=== PATIENT | male | born 2000 | race Hispanic/Latino ===

== ENCOUNTER → 2020-04-02 | Outpatient (CLI) | payer MEDICAID ==
[~2020-04-02] MED LIST: HONEY 1 APPL/ML TUBE TP ONE; LIDOCAINE HCL 2% JELLY 5 ML ONE
== END | disposition home or self-care (01) ==
LOC: WHH 13:03
PROVIDERS: ATTEND Family Medicine
DX: L89.313 Pressure ulcer of right buttock, stage 3 (principal); Q05.9 Spina bifida, unspecified; G82.20 Paraplegia, unspecified
CPT/HCPCS: 11042; 11045; 36415; 84134; 85651; 86140; 87076; 87077 ×3; 87186 ×3; 99215; A6197

== ENCOUNTER → 2020-04-09 | Outpatient (CLI) | payer MEDICAID ==
[~2020-04-09] MED LIST changes: +CHOL400T14 PO; +COLL30OI TP; +DOCU100C33 PO; +FERR325T22 PO; -HONEY 1 APPL/ML TUBE TP ONE; -LIDOCAINE HCL 2% JELLY 5 ML ONE; +OXCA300T46 PO; +OXYB15TA19 PO; +POLY17PO4 PO
== END | disposition home or self-care (01) ==
LOC: WHH 13:30
PROVIDERS: ATTEND Family Medicine
DX: L89.314 Pressure ulcer of right buttock, stage 4 (principal); G82.20 Paraplegia, unspecified; Q05.9 Spina bifida, unspecified
CPT/HCPCS: 11042; 11045; A6197

== ENCOUNTER → 2020-04-16 | Outpatient (CLI) | payer MEDICAID ==
[~2020-04-16] MED LIST changes: -CHOL400T14 PO; -COLL30OI TP; -DOCU100C33 PO; -FERR325T22 PO; +HONEY 1 APPL/ML TUBE TP ONE; +LIDOCAINE HCL 4% LTA SOL 4 ML VIAL ONE; -OXCA300T46 PO; -OXYB15TA19 PO; -POLY17PO4 PO
== END | disposition home or self-care (01) ==
LOC: WHH 13:00
PROVIDERS: ATTEND Family Medicine
DX: L89.314 Pressure ulcer of right buttock, stage 4 (principal); G82.20 Paraplegia, unspecified; Q05.9 Spina bifida, unspecified
CPT/HCPCS: 11042; 11045

== ENCOUNTER → 2020-04-23 | Outpatient (CLI) | payer MEDICAID ==
[~2020-04-23] MED LIST changes: -HONEY 1 APPL/ML TUBE TP ONE
== END | disposition home or self-care (01) ==
LOC: WHH 13:00
PROVIDERS: ATTEND Family Medicine
DX: L89.314 Pressure ulcer of right buttock, stage 4 (principal); G82.20 Paraplegia, unspecified; Q05.9 Spina bifida, unspecified
CPT/HCPCS: 11042; 11045; A6260

== ENCOUNTER → 2020-04-30 | Outpatient (CLI) | payer MEDICAID ==
[~2020-04-30] MED LIST changes: +CHOL400T14 PO; +COLL30OI TP; +DOCU100C33 PO; +FERR325T22 PO; -LIDOCAINE HCL 4% LTA SOL 4 ML VIAL ONE; +OXCA300T46 PO; +OXYB15TA19 PO; +POLY17PO4 PO
== END | disposition home or self-care (01) ==
LOC: WHH 13:00
PROVIDERS: ATTEND Family Medicine
DX: L89.314 Pressure ulcer of right buttock, stage 4 (principal); G82.20 Paraplegia, unspecified; Q05.9 Spina bifida, unspecified
CPT/HCPCS: 11042; 11045; A6260

== ENCOUNTER 2020-05-06 07:42 | Day surgery (SDC) | payer MEDICAID ==
[2020-05-02 10:27] LABS: BASOPHILS % (AUTO) 0.2 % (0.0-5.0); EOSINOPHILS % (AUTO) 0.4 % (0.0-8.0); HEMATOCRIT 34.7 % (42-54); MEAN CORPUSCULAR HGB CONC 30.8 g/dL (32.0-36.0); MEAN CORPUSCULAR VOLUME 87.6 fL (80-100); MONOCYTES % (AUTO) 7.9 % (3.0-13.0); NEUTROPHILS % (AUTO) 78.9 % (40.0-77.0); PLATELET COUNT (AUTO) 544 K/uL (130-400); RED BLOOD CELL COUNT(AUTO) 3.96 MIL/uL (4.50-6.20); RED CELL DISTRIBUTION WIDTH 13.7 % (11.0-15.5)
[2020-05-02 10:47] LABS: ALBUMIN 2.7 g/dL (3.5-5.0); BILIRUBIN,TOTAL 0.1 mg/dL (0.2-1.0); CREATININE 0.6 mg/dL (0.5-1.5); POTASSIUM 4.3 mmol/L (3.5-5.1); TOTAL PROTEIN, SERUM 8.5 g/dL (6.0-8.3)
[2020-05-02 14:36] VITALS: BP 131/79
[~2020-05-06] VITALS: Ht 162.6 cm; Wt 56.7 kg
[2020-05-06] VITALS (23 sets, daily range): BP systolic 109–149; BP diastolic 63–97
[2020-05-06] MEDS ORDERED: CEFAZOLIN SODIUM 1 GM VIAL ONE (08:42)
[2020-05-06] MEDS ORDERED: SODIUM CHLORIDE 0.9% 1000ML 1,000 ML IV ONE (08:42)
[2020-05-06] MEDS ORDERED: ONDANSETRON HCL 4 MG/2 ML VIAL ONE (09:23)
[2020-05-06] MEDS ORDERED: FENTANYL CITRATE PF 50 MCG/1 ML 2ML VIAL ONE (09:23)
[2020-05-06] MEDS ORDERED: DEXAMETHASONE SOD PHOSPHATE 10MG/ML 1ML VIAL ONE (09:23)
[2020-05-06] MEDS ORDERED: LIDOCAINE PF 2% 5ML ABBOJECT ONE (09:23)
[2020-05-06] MEDS ORDERED: MIDAZOLAM HCL 1 MG/ML 2ML VIAL ONE (09:24)
[2020-05-06] MEDS ORDERED: ROCURONIUM 10MG/1ML SYR 10 MG/ML ML ONE (09:24)
[2020-05-06] MEDS ORDERED: PROPOFOL 10 MG/ML 20ML VIAL IV ONE (09:24)
[2020-05-06] MEDS ORDERED: NEOSTIGMINE 5MG/5ML SYR IV ONE (10:26)
[2020-05-06] MEDS ORDERED: GLYCOPYRROLATE 1 MG/5 ML SYRINGE ONE (10:26)
[2020-05-06] MEDS ORDERED: DOCUSATE SODIUM 100 MG CAP PO PRN (13:45)
--- NOTE | 2020-05-06 15:00 | NUR ---
post received pt from [facility]. s/p right buttock/sacral area debridment and placement of wound vac continuous 125, wound vac sealed dry and intact. home wound vac in place. was delivered by [facility],
--- NOTE | 2020-05-06 15:00 | NUR ---
post plan of care discuss with pt/ pts sister Flakita pt has a hx spina bifida. oriented to name only .confuse phrases , able to follow simple commands . Sister Flakita at bedside .
--- NOTE | 2020-05-06 15:25 | NUR ---
DISCHARGE INSTRUCTIONS PROVIDED TO PATIENT'S SISTER (KARLO). WOUND VAC INSTRUCTIONS PROVIDED AND QUESTIONS ANSWERED. FOLLOW UP APPOINTMENT PROVIDED WITH [facility] AND DR ARGUETA.
--- NOTE | 2020-05-06 15:55 | NUR ---
PATIENT DISCHARGED FROM HOSPITAL VIA WHEELCHAIR AND ASSISTED INTO PRIVATE VEHICLE DRIVEN BY FAMILY MEMBER.
[2020-05-06] MEDS ORDERED: OXCARBAZEPINE 300 MG TAB PO SCH (21:00)
[2020-05-07] MEDS ORDERED: OXYBUTYNIN 5 MG TAB.SR.24H PO SCH (09:00)
[2020-05-07] MEDS ORDERED: FERROUS SULFATE 325 MG TABLET.DR PO SCH (09:00)
[2020-05-07] MEDS ORDERED: POLYETHYLENE GLYCOL 3350 17 GM POWD.PACK PO SCH (09:00)
== END 2020-05-06 15:55 | disposition home or self-care (01) ==
LOC: DAH 07:42
PROVIDERS: ATTEND Student in an Organized Health Care Education/Training Program
DX: L89.314 Pressure ulcer of right buttock, stage 4 (principal); Z79.899 Other long term (current) drug therapy; Z20.828 Contact with and (suspected) exposure to other viral communicable diseases
CPT/HCPCS: 11043; 11046; 36415; 80053; 85025; 87070; 87076; 87077; 87186; 87205; A4215; A4221; A4222; A4223; A4663; A4930 ×2; A6210; A6251; A6260; A6402; A9272; C9803; J0690; J1100; J2001; J2250; J2405; J2704; J2710; J3010; J3490; J7030; U0003

== ENCOUNTER → 2020-05-07 | Outpatient (CLI) | payer MEDICAID | END | disposition home or self-care (01) | LOC: WHH 13:30 | PROVIDERS: ATTEND Family Medicine | DX: L89.314 Pressure ulcer of right buttock, stage 4 (principal); G82.20 Paraplegia, unspecified; Q05.9 Spina bifida, unspecified | CPT/HCPCS: 99214 ==

== ENCOUNTER → 2020-05-14 | Outpatient (CLI) | payer MEDICAID | END | disposition home or self-care (01) | LOC: WHH 13:30 | PROVIDERS: ATTEND Family Medicine | DX: L89.314 Pressure ulcer of right buttock, stage 4 (principal); G82.20 Paraplegia, unspecified; Q05.9 Spina bifida, unspecified | CPT/HCPCS: 11042; 11045; 97605 ==

== ENCOUNTER → 2020-06-04 | Outpatient (CLI) | payer MEDICAID ==
[~2020-06-04] MED LIST changes: +LIDOCAINE HCL 2% JELLY 5 ML TP ONE
== END | disposition home or self-care (01) ==
LOC: WHH 13:30
PROVIDERS: ATTEND Family Medicine
DX: L89.314 Pressure ulcer of right buttock, stage 4 (principal); G82.20 Paraplegia, unspecified; Q05.9 Spina bifida, unspecified
CPT/HCPCS: 11042; 97605; A6210; 11043

== ENCOUNTER → 2020-06-11 | Outpatient (CLI) | payer MEDICAID | END | disposition home or self-care (01) | LOC: WHH 13:30 | PROVIDERS: ATTEND Family Medicine | DX: L89.314 Pressure ulcer of right buttock, stage 4 (principal); G82.20 Paraplegia, unspecified; Q05.9 Spina bifida, unspecified | CPT/HCPCS: 11042; 97605 ==

== ENCOUNTER → 2020-06-25 | Outpatient (CLI) | payer MEDICAID ==
[~2020-06-25] MED LIST changes: +HONEY 1 APPL/ML TUBE TP ONE; -LIDOCAINE HCL 2% JELLY 5 ML TP ONE
== END | disposition home or self-care (01) ==
LOC: WHH 13:00
PROVIDERS: ATTEND Family Medicine
DX: L89.314 Pressure ulcer of right buttock, stage 4 (principal); G82.20 Paraplegia, unspecified; Q05.9 Spina bifida, unspecified
CPT/HCPCS: 11042; 97605

== ENCOUNTER → 2020-07-02 | Outpatient (CLI) | payer MEDICAID ==
[~2020-07-02] MED LIST changes: -HONEY 1 APPL/ML TUBE TP ONE; +LIDOCAINE HCL 2% JELLY 5 ML TP ONE
== END | disposition home or self-care (01) ==
LOC: WHH 13:00
PROVIDERS: ATTEND Family Medicine
DX: L89.314 Pressure ulcer of right buttock, stage 4 (principal); G82.20 Paraplegia, unspecified; Q05.9 Spina bifida, unspecified
CPT/HCPCS: 11042; 97605

== ENCOUNTER → 2020-07-16 | Outpatient (CLI) | payer MEDICAID | END | disposition home or self-care (01) | LOC: WHH 13:00 | PROVIDERS: ATTEND Family Medicine | DX: L89.314 Pressure ulcer of right buttock, stage 4 (principal); G82.20 Paraplegia, unspecified; Q05.9 Spina bifida, unspecified | CPT/HCPCS: 11042; 97605 ==

== ENCOUNTER → 2020-07-23 | Outpatient (CLI) | payer MEDICAID | END | disposition home or self-care (01) | LOC: WHH 13:00 | PROVIDERS: ATTEND Family Medicine | DX: L89.314 Pressure ulcer of right buttock, stage 4 (principal); G82.20 Paraplegia, unspecified; Q05.9 Spina bifida, unspecified | CPT/HCPCS: 11042; 97605 ==

== ENCOUNTER → 2020-08-27 | Outpatient (CLI) | payer MEDICAID | END | disposition home or self-care (01) | LOC: WHH 13:30 | PROVIDERS: ATTEND Family Medicine | DX: L89.314 Pressure ulcer of right buttock, stage 4 (principal); G82.20 Paraplegia, unspecified; Q05.9 Spina bifida, unspecified | CPT/HCPCS: 11042; 97605 ==

== ENCOUNTER → 2020-09-10 | Outpatient (CLI) | payer MEDICAID | END | disposition home or self-care (01) | LOC: WHH 12:45 | PROVIDERS: ATTEND Family Medicine | DX: L89.314 Pressure ulcer of right buttock, stage 4 (principal); G82.20 Paraplegia, unspecified; Q05.9 Spina bifida, unspecified | CPT/HCPCS: 11042 ==

== ENCOUNTER → 2020-09-24 | Outpatient (CLI) | payer MEDICAID | END | disposition home or self-care (01) | LOC: WHH 13:30 | PROVIDERS: ATTEND Family Medicine | DX: L89.314 Pressure ulcer of right buttock, stage 4 (principal); G82.20 Paraplegia, unspecified; Q05.9 Spina bifida, unspecified | CPT/HCPCS: 11042; 97605 ==

== ENCOUNTER → 2020-10-15 | Outpatient (CLI) | payer MEDICAID | END | disposition home or self-care (01) | LOC: WHH 13:30 | PROVIDERS: ATTEND Family Medicine | DX: L89.314 Pressure ulcer of right buttock, stage 4 (principal); G82.20 Paraplegia, unspecified; Q05.9 Spina bifida, unspecified | CPT/HCPCS: 11042; 97605 ==

== ENCOUNTER → 2020-10-22 | Outpatient (CLI) | payer MEDICAID | END | disposition home or self-care (01) | LOC: WHH 13:30 | PROVIDERS: ATTEND Family Medicine | DX: L89.314 Pressure ulcer of right buttock, stage 4 (principal); G82.20 Paraplegia, unspecified; Q05.9 Spina bifida, unspecified | CPT/HCPCS: 11042; 97605 ==

== ENCOUNTER → 2020-10-29 | Outpatient (CLI) | payer MEDICAID | END | disposition home or self-care (01) | LOC: WHH 13:30 | PROVIDERS: ATTEND Family Medicine | DX: L89.314 Pressure ulcer of right buttock, stage 4 (principal); G82.20 Paraplegia, unspecified; Q05.9 Spina bifida, unspecified | CPT/HCPCS: 11042; 97605; A6210 ==

== ENCOUNTER → 2020-11-05 | Outpatient (CLI) | payer MEDICAID | END | disposition home or self-care (01) | LOC: WHH 13:45 | PROVIDERS: ATTEND Family Medicine | DX: L89.314 Pressure ulcer of right buttock, stage 4 (principal); G82.20 Paraplegia, unspecified; Q05.9 Spina bifida, unspecified | CPT/HCPCS: 11042; 97605 ==

== ENCOUNTER → 2021-07-14 | Outpatient (CLI) | payer MEDICAID ==
[~2021-07-14] MED LIST changes: +BALSAM PERU/CASTOR OIL 60 GM TUBE TP ONE; -LIDOCAINE HCL 2% JELLY 5 ML TP ONE; +LIDOCAINE HCL 4% LTA SOL 4 ML VIAL TP ONE
== END | disposition home or self-care (01) ==
LOC: WHH 10:09
PROVIDERS: ATTEND Family Medicine
DX: L89.324 Pressure ulcer of left buttock, stage 4 (principal); L89.312 Pressure ulcer of right buttock, stage 2; G82.20 Paraplegia, unspecified; Q05.9 Spina bifida, unspecified; M62.3 Immobility syndrome (paraplegic); Z79.899 Other long term (current) drug therapy
CPT/HCPCS: 99214

== ENCOUNTER → 2021-07-28 | Outpatient (CLI) | payer MEDICAID ==
[~2021-07-28] MED LIST changes: -BALSAM PERU/CASTOR OIL 60 GM TUBE TP ONE; -LIDOCAINE HCL 4% LTA SOL 4 ML VIAL TP ONE
== END | disposition home or self-care (01) ==
LOC: WHH 10:01
PROVIDERS: ATTEND Family Medicine
DX: L89.324 Pressure ulcer of left buttock, stage 4 (principal); L89.312 Pressure ulcer of right buttock, stage 2; G82.20 Paraplegia, unspecified; Q05.9 Spina bifida, unspecified; M62.3 Immobility syndrome (paraplegic); Z79.899 Other long term (current) drug therapy
CPT/HCPCS: 99213